=== PATIENT | male | born 1995 | race African-American/Black ===

== ENCOUNTER 2023-11-22 13:19 | Emergency (ER) | payer MEDICAID ==
[~2023-11-22] VITALS: Ht 175.3 cm; Wt 82.0 kg
[2023-11-22 13:26] VITALS: BP 116/65; PULSE 82; RESP 20; TEMP 98.1; O2SAT 100
[2023-11-22] MEDS: METRONIDAZOLE 500MG TABLET PO ONE (14:58)
== END 2023-11-22 15:10 | disposition home or self-care (01) ==
LOC: ER 13:38
DX: A59.8 Trichomoniasis of other sites (principal); J45.909 Unspecified asthma, uncomplicated; F12.90 Cannabis use, unspecified, uncomplicated; Z98.890 Other specified postprocedural states
CPT/HCPCS: 99283